=== PATIENT | male | born 1990 | race African-American/Black ===

== ENCOUNTER 2018-03-18 21:27 | Emergency (ER) | payer OTHER ==
[~2018-03-18 21:27] MED LIST: ISOVUE-370 76%-LOCM 1 ML ONE
[2018-03-18] MEDS ORDERED: Fluorescein Opthalmic Strip ONE (21:36)
[2018-03-18] MEDS ORDERED: Proparacaine 0.5% Opth 15 ML BOT ONE (21:36)
[2018-03-18 21:45] LABS: #Basophils 0.1 thou/uL (0.0-0.2); #Eosinphils 0.2 thou/uL (0.0-0.7); #Lymphocytes 2.4 thou/uL (1.20-3.40); #Monocytes 0.8 thou/uL (0.11-0.59); #Neutrophils 7.9 thou/uL (1.40-6.50); %Basophils 0.5 % (0.0-1.0); %Eosinophils 1.7 % (0.0-10.0); %Lymphocytes 20.9 % (21.0-51.0); %Monocytes 7.2 % (0.0-10.0); %Neutrophils 69.7 % (42.0-75.0); Hemoglobin 16.4 g/dL (14.0-18.0); Mean Corpuscular HGB CONC 33.8 g/dL (32.0-36.0); Mean Corpuscular Hemoglobin 28.6 pg (27.0-31.0); Mean Corpuscular Volume 84.5 fl (80.0-94.0); Mean Platelet Volume 8.6 fL (7.4-10.4); Platelet Count 215 thou/uL (130-400); RBC Distribution Width 12.3 % (11.5-14.5); Red Blood Cell (RBC) Count 5.74 mill/uL (4.70-6.10); White Blood Cell (WBC) Count 11.3 thou/uL (4.8-10.8)
[2018-03-18] MEDS ORDERED: Adacel (T-DAP) 0.5 ML VIAL ONE (21:59)
[2018-03-18 22:05] LABS: ALT (SGPT) 31 U/L (8-55); AST (SGOT) 23 U/L (5-34); Albumin 4.7 g/dL (3.5-5.0); Alkaline Phosphatase 82 U/L (40-150); Anion Gap 15 mmol/L (10-20); BUN (Urea Nitrogen) 14 mg/dL (8.9-20.6); Bilirubin, Total 0.6 mg/dL (0.2-1.2); Calc. Creatinine Clearance 0 mL/min (70-130); Carbon Dioxide 22 mmol/L (22-29); Chloride 108 mmol/L (98-107); Estimated GFR-MDRD Greater than 90; Glucose 114 mg/dL (70-105); Potassium 3.5 mmol/L (3.5-5.1); Protein, Total 8.7 g/dL (6.0-8.3); Sodium 141 mmol/L (136-145)
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
== END 2018-03-18 23:07 | disposition home or self-care (01) ==
LOC: ERS 21:27
DX: T07.XXXA Unspecified multiple injuries, initial encounter (principal); V43.62XA Car passenger injured in collision with other type car in traffic accident, initial encounter
CPT/HCPCS: 70450; 71260; 72125; 74177; 80053; 85025; 86850; 86900; 86901; 90471; 90715; 93005; 96360; G0390

== ENCOUNTER 2020-04-22 10:02 | Emergency (ER) | payer OTHER ==
[2020-04-23 12:48] LABS: SARS-CoV-2 MS2 Positive; SARS-CoV-2 N Gene Negative; SARS-CoV-2 S Gene Negative; SARS-CoV-2 orf1ab Negative
== END 2020-04-22 10:26 | disposition home or self-care (01) ==
LOC: ERS 10:02
DX: Z20.828 Contact with and (suspected) exposure to other viral communicable diseases (principal)
CPT/HCPCS: 87635; 99283; U0003